=== PATIENT | female | born 1930 | race Caucasian/White ===

== ENCOUNTER 2018-05-27 15:15 | Emergency (ER) | payer MEDICARE ==
[~2018-05-27] VITALS: Ht 157.5 cm; Wt 67.1 kg
[2018-05-27 16:35] LABS: BASOPHILS # (AUTO) 0.1 (0.0-0.1); BASOPHILS % 0.6 % (0.0-1.0); EOSINOPHILS # (AUTO) 0.2 (0.0-0.4); HEMATOCRIT 40.3 % (34.2-44.1); HEMOGLOBIN 13.4 g/dL (12.0-16.0); LYMPHOCYTES # (AUTO) 2.2 (1.0-3.2); LYMPHOCYTES % 26.8 % (18.0-39.1); MEAN CORPUSCULAR HEMOGLOBIN 29.3 pg (28-32); MEAN CORPUSCULAR HGB CONC 33.3 g/dL (31-35); MONOCYTES # (AUTO) 0.7 (0.2-0.8); MONOCYTES % 8.4 % (4.4-11.3); NEUTROPHILS # (AUTO) 5.1 (2.1-6.9); PLATELET COUNT 292 x10e3/uL (140-360); RED BLOOD COUNT 4.58 x10e6/uL (3.6-5.1); RED CELL DISTRIBUTION WIDTH 13.3 % (11.7-14.4)
[2018-05-27] MEDS ORDERED: HYDRALAZINE HCL 20 MG/ML VIAL IV STA (16:41)
[2018-05-27] MEDS ORDERED: ASPIRIN 81 MG CHEW TAB PO ONE (16:45)
[2018-05-27 16:49] LABS: ALBUMIN 3.7 g/dL (3.5-5.0); ALBUMIN/GLOBULIN RATIO 0.9 (0.8-2.0); ANION GAP 15.4 mmol/L (8-16); CREATININE, SERUM 1.2 mg/dL (0.57-1.11); POTASSIUM 4.4 mmol/L (3.5-5.1)
--- NOTE | 2018-05-27 17:22 | Diagnostic Imaging Report ---
Examination: Single AP view of the chest. COMPARISON: None. INDICATION: Shortness of breath DISCUSSION: Lines/tubes: None. Lungs: Mild bilateral perihilar, peribronchial thickening may reflect a viral infection or reactive airway disease. There is no evidence of pneumonia or pulmonary edema. Pleura: There is no pleural effusion or pneumothorax. Heart and mediastinum: Cardiomediastinal silhouette is unremarkable. Pulmonary vasculature is normal. Bones and soft tissues: No acute bony abnormalities. Degenerative changes in the thoracic spine. IMPRESSION: 1. Mild bilateral perihilar, peribronchial thickening may reflect a viral infection or reactive airway disease. Signed by: Dr. Donn Soriano M.D. on 05/27/2018 5:19 PM
[2018-05-27 17:53] LABS: CREATINE KINASE 52 IU/L (29-168)
[2018-05-27] MEDS ORDERED: PRAVASTATIN SOD20 MG (18:54)
[2018-05-27] MEDS ORDERED: ASPIRIN81 MG (18:54)
[2018-05-27] MEDS ORDERED: LEVOTHYROXINE88 MCG PO (18:54)
[2018-05-27] MEDS ORDERED: HYDROCHLOROTHIA25 MG (18:54)
[2018-05-27 19:14] VITALS: BP 161/57
== END 2018-05-27 19:15 | disposition home or self-care (01) ==
LOC: ER 15:15
DX: R06.09 Other forms of dyspnea (principal); J44.9 Chronic obstructive pulmonary disease, unspecified; R60.0 Localized edema
CPT/HCPCS: 36415; 71045; 80053; 82550; 82553; 83880; 84484; 85025; 85379; 93971; 99284; J0360; 93005

== ENCOUNTER 2018-10-16 08:05 | Inpatient (IN) | payer MEDICARE ==
[~2018-10-16] VITALS: Ht 157.5 cm; Wt 72.1 kg
[~2018-10-16 08:05] MED LIST: ASPIRIN81 MG; HYDROCHLOROTHIA25 MG PO; LEVOTHYROXINE88 MCG PO; PRAVASTATIN SOD20 MG PO
--- OUTSIDE RECORDS SUMMARY | 2018-10-16 08:07 | XMS REPORT ---
Author Author [facility] Address Unknown Phone Unavailable Care Team Providers Care Salvage Clerk Name Role Phone Lizbeth GARVEY Unavailable Unavailable Problems This patient has no known problems. Allergies, Adverse Reactions, Alerts This patient has no known allergies or adverse reactions. Medications This patient has no known medications. Results Test Description Test Time Test Comments Text Results Atomic Results Result Comments CHEST SINGLE (PORTABLE) 2018-05-27 17:18:00 [place] [address] Patient Name: ANNELISE GANNON MR #: [id number] : 1930 Age/Sex: 87/F Req #: [id number] [facility] Physician: Ordered by: PEYTON GARVEY MD Report #: [id number] Location: ER Room/Bed: Procedure: [id number] DX/CHEST SINGLE (PORTABLE) Exam Date: 05/27/18 Exam Time: 1654 REPORT STATUS: Signed Examination: Single AP view of the chest. COMPARISON: None. INDICATION: Shortness of breath DISCUSSION: Lines/tubes: None. Lungs: Mild bilateral perihilar, peribronchial thickening may reflect a viral infection or reactive airway disease. There is no evidence of pneumonia or pulmonary edema. Pleura: There is no pleural effusion or pneumothorax. Heart and mediastinum: Cardiomediastinal silhouette is unremarkable. Pulmonary vasculature is normal. Bones and soft tissues: No acute bony abnormalities. Degenerative changes in the thoracic spine. IMPRESSION: 1. Mild bilateral perihilar, peribronchial thickening may reflect a viral infection or reactive airway disease. Signed by: Dr. Donn Jiménez M.D. on 05/27/2018 5:19 PM Dictated By: KALEY JIMÉNEZ MD, MD 18 Transcribed By: ESTHER on 05/27/181718 COPY TO: PEYTON GARVEY MD
--- NOTE | 2018-10-16 08:20 | NUR ---
Dr. Way at bedside with pt.
[2018-10-16 09:04] LABS: BASOPHILS # (AUTO) 0.1 (0.0-0.1); BASOPHILS % 0.4 % (0.0-1.0); EOSINOPHILS # (AUTO) 0.2 (0.0-0.4); EOSINOPHILS % 1.2 % (0.0-6.0); HEMOGLOBIN 11.7 g/dL (12.0-16.0); LYMPHOCYTES # (AUTO) 1.5 (1.0-3.2); LYMPHOCYTES % 10.1 % (18.0-39.1); MEAN CORPUSCULAR HGB CONC 32.5 g/dL (31-35); MEAN CORPUSCULAR VOLUME 89.3 fL (81-99); MONOCYTES # (AUTO) 1.1 (0.2-0.8); MONOCYTES % 7.1 % (4.4-11.3); NEUTROPHILS # (AUTO) 12.1 (2.1-6.9); NEUTROPHILS % 80.4 % (38.7-80.0); PLATELET COUNT 242 x10e3/uL (140-360); RED BLOOD COUNT 4.03 x10e6/uL (3.6-5.1); RED CELL DISTRIBUTION WIDTH 14.3 % (11.7-14.4)
[2018-10-16 09:24] LABS: ALBUMIN/GLOBULIN RATIO 0.7 (0.8-2.0); ANION GAP 18.7 mmol/L (8-16); CALCIUM 9.5 mg/dL (8.4-10.2); CREATININE, SERUM 1.32 mg/dL (0.57-1.11); POTASSIUM 3.7 mmol/L (3.5-5.1)
--- NOTE | 2018-10-16 09:28 | NUR ---
MANA FROM LAB CALLED TO REPORT CRITICAL LACTIC ACID LEVEL 23.3. INFORMED DR. TONG WELL HIREN, RN/JOVANNI RN PRIMARY NURSES FOR PT.
[2018-10-16] MEDS ORDERED: SODIUM CHLORIDE 0.9% 1000ML 1,000 ML IV SCH (09:30)
[2018-10-16] MEDS ORDERED: CEFTRIAXONE SOD 1 GM VIAL IV SCH (09:30)
[2018-10-16 09:34] LABS: B-TYPE NATRIURETIC PEPTIDE2 182.4 pg/mL (0-100); CREATINE KINASE MB 2.9 ng/mL (0-5.0)
--- NOTE | 2018-10-16 09:36 | Diagnostic Imaging Report ---
Examination: Single AP view of the chest. COMPARISON: Chest radiograph 05/27/18. INDICATION: Shortness of breath DISCUSSION: Lines/tubes: None. Lungs: Perihilar interstitial opacities. Patchy opacities of the lung bases. No evidence of lobar consolidation. Pleura: There is no pleural effusion or pneumothorax. Heart and mediastinum: Cardiomediastinal silhouette is unremarkable. Pulmonary vasculature is normal. Bones and soft tissues: No acute bony abnormalities. Degenerative changes in the thoracic spine. IMPRESSION: Perihilar/interstitial and patchy bibasilar opacities could represent atypical pneumonia in the appropriate clinical context. Possible mild pulmonary interstitial edema. Signed by: Dr. Monty Gomes MD on 10/16/2018 9:32 AM
[2018-10-16] MEDS: ALBUTEROL SULF 0.083% NEB SOLN 3 ML NEB NEB SCH ×5 (10:15→23:10)
--- NOTE | 2018-10-16 10:45 | NUR ---
Pt assisted to the restroom without incident.
[2018-10-16] MEDS: CEFTRIAXONE SOD 1 GM/NS 50 ML 50 ML IV SCH (11:20)
--- NOTE | 2018-10-16 11:33 | NUR ---
RT notified of need for nebulize treatment.
[2018-10-16] MEDS: IPRATROPIUM BROMIDE 0.02% 2.5 ML NEB NEB SCH ×4 (12:00→23:10)
[2018-10-16] MEDS: AZITHROMYCIN 500MG/NS 250 ML 250 ML IV SCH (12:54)
--- NOTE | 2018-10-16 14:30 | NUR ---
Pt resting in bed with eyes closed, appearing to be in no acute distress at this time.
[2018-10-16] MEDS: SODIUM CHLORIDE 0.9% 1000ML 1,000 ML IV SCH ×2 (14:50→23:32)
--- NOTE | 2018-10-16 17:13 | NUR ---
Tried to call report to [facility] 2, was told per Gabby "Marilia will call you back."
--- NOTE | 2018-10-16 18:15 | NUR ---
pt alert resp even and unlabored at this time no distress noted, pt able to make needs known, pt has family members at bedside, pt bed in lowest position, bed rails up x2, pt oriented to call light. will cont to monitor.
[2018-10-16 18:20] VITALS: BP 146/85
--- NOTE | 2018-10-16 19:35 | NUR ---
report given to oncoming nurse, for continued care.
[2018-10-16 20:00] VITALS: BP 145/65
--- NOTE | 2018-10-16 20:37 | History and Physical ---
PRIMARY CARE PHYSICIAN: Rehan Moore MD CHIEF COMPLAINT: Shortness of breath and cough. HISTORY OF PRESENT ILLNESS: This is an 87-year-old woman with a history of hypothyroidism and COPD, who quit cigarette about 20 years ago, now developing cough productive of phlegm for the past week with shortness of breath. She also had subjective fever. She also had chills and sweats, here for evaluation. No nausea or vomiting. No diarrhea. PAST MEDICAL HISTORY: COPD, hypothyroidism, fibrocystic breast disease status post bilateral mastectomy prophylactically. PAST SURGICAL HISTORY: Thyroidectomy and bilateral mastectomy. ALLERGIES: PER ELECTRONIC MEDICAL RECORD. FAMILY AND SOCIAL HISTORY: Patient is . No alcohol or illicits. She quit cigarettes 20 years ago. MEDICATIONS: Per electronic medical record. REVIEW OF SYSTEMS: Denies any vision changes. Denies any headache, back pain, or neck pain. Denies any confusion or leg pain. Denies any diarrhea, nausea or vomiting. Denies any other symptoms. PHYSICAL EXAMINATION VITAL SIGNS: Have been reviewed. GENERAL: A tired-appearing woman, resting in bed. HEENT: Anicteric. Pupils reactive to light. No oral lesions. CARDIOVASCULAR: Normal S1, S2. LUNGS: She has reduced breath sounds throughout. No wheezing. ABDOMEN: Soft, nontender, nondistended. EXTREMITIES: No edema or calf tenderness. NEUROLOGIC: Alert and oriented x3. She moves all extremities. SKIN: Dry. PSYCHIATRIC: Normal affect. LABS: Reviewed. MEDICATIONS: Reviewed. ASSESSMENT: An 87-year-old woman with: 1. Acute bronchial pneumonia. 2. Acute kidney injury. 3. Acute exacerbation of chronic obstructive pulmonary disease. 4. Hypothyroidism. 5. Overweight state with a body mass index of 26.5. PLAN 1. Continue azithromycin and ceftriaxone. 2. Continue with antitussive medication. 3. Use loratadine. 4. Use methylprednisolone 20 mg IV q.12. 5. Monitor closely and continue oxygen support. 6. Heparin and Pepcid for prophylaxis. 7. Disposition: Monitored closely and follow up labs in morning. Job#: [id number] KELSEA
[2018-10-16] MEDS: HEPARIN SOD (PORCINE) 5,000 UNIT/ML VIAL SC SCH (22:48)
[2018-10-16] MEDS: METHYLPREDNISOLONE SOD SUCC 40 MG/ML VIAL IV SCH (22:48)
[2018-10-16] MEDS: BENZONATATE 100 MG CAP PO SCH (22:48)
[2018-10-16] MEDS: GUAIFENESIN/DEXTROMETHORPHAN LIQD 5 ML UDC NG SCH (22:49)
[2018-10-17] VITALS (7 sets, daily range): BP systolic 129–156; BP diastolic 60–69
[2018-10-17] MEDS: ALBUTEROL SULF 0.083% NEB SOLN 3 ML NEB NEB SCH ×6 (02:45→23:15)
[2018-10-17 04:52] LABS: BASOPHILS % 0.1 % (0.0-1.0); EOSINOPHILS % 0.1 % (0.0-6.0); HEMATOCRIT 32.2 % (34.2-44.1); HEMOGLOBIN 10.3 g/dL (12.0-16.0); LYMPHOCYTES # (AUTO) 0.7 (1.0-3.2); LYMPHOCYTES % 4.6 % (18.0-39.1); MEAN CORPUSCULAR HEMOGLOBIN 28.7 pg (28-32); MEAN CORPUSCULAR VOLUME 89.7 fL (81-99); MONOCYTES # (AUTO) 0.4 (0.2-0.8); MONOCYTES % 2.6 % (4.4-11.3); NEUTROPHILS # (AUTO) 13.5 (2.1-6.9); NEUTROPHILS % 91.2 % (38.7-80.0); PLATELET COUNT 257 x10e3/uL (140-360); RED BLOOD COUNT 3.59 x10e6/uL (3.6-5.1); RED CELL DISTRIBUTION WIDTH 14.3 % (11.7-14.4)
[2018-10-17] MEDS: GUAIFENESIN/DEXTROMETHORPHAN LIQD 5 ML UDC NG SCH ×3 (05:35→21:48)
--- NOTE | 2018-10-17 06:43 | Diagnostic Imaging Report ---
EXAMINATION: CHEST SINGLE (PORTABLE) INDICATION: PNEUMONIA COMPARISON: 10/16/2018 FINDINGS: AP view TUBES and LINES: None. LUNGS: Lungs are well inflated. Multifocal bilateral airspace opacities, increased at the right lung base. Stable mild interstitial edema. PLEURA: No pleural effusion or pneumothorax. HEART AND MEDIASTINUM: The cardiomediastinal silhouette is unremarkable. BONES AND SOFT TISSUES: No acute osseous lesion. Soft tissues are unremarkable. UPPER ABDOMEN: No free air under the diaphragm. IMPRESSION: Persistent mild interstitial edema and bilateral airspace opacities which may represent edema or infection. Signed by: DR. Csear Lu MD on 10/17/2018 6:40 AM
[2018-10-17 06:51] LABS: ANION GAP 13.1 mmol/L (8-16); CALCIUM 8.4 mg/dL (8.4-10.2); CREATININE, SERUM 0.93 mg/dL (0.57-1.11); POTASSIUM 4.1 mmol/L (3.5-5.1)
--- NOTE | 2018-10-17 06:55 | NUR ---
PT ASLEEP RESP EVEN AND UNLABORED, NO DISTRESS NOTED AT THIS, PT EASILY AROUSED TO NAME , NO C/O SOB AT THIS TIME, CALL LIGHT IN REACH WILL CONT TO MONITOR.
[2018-10-17] MEDS: IPRATROPIUM BROMIDE 0.02% 2.5 ML NEB NEB SCH ×3 (07:00→19:10)
[2018-10-17] MEDS: SODIUM CHLORIDE 0.9% 1000ML 1,000 ML IV SCH ×2 (08:30→18:23)
[2018-10-17] MEDS: METHYLPREDNISOLONE SOD SUCC 40 MG/ML VIAL IV SCH ×2 (08:56→21:48)
[2018-10-17] MEDS: FAMOTIDINE 20 MG TAB PO SCH ×2 (08:56→16:30)
[2018-10-17] MEDS: LORATADINE 10 MG TAB PO SCH (08:56)
[2018-10-17] MEDS: BENZONATATE 100 MG CAP PO SCH ×3 (08:56→21:48)
[2018-10-17] MEDS: CEFTRIAXONE SOD 1 GM/NS 50 ML 50 ML IV SCH (08:57)
[2018-10-17] MEDS: HEPARIN SOD (PORCINE) 5,000 UNIT/ML VIAL SC SCH ×2 (09:00→21:49)
[2018-10-17] MEDS: AZITHROMYCIN 500MG/NS 250 ML 250 ML IV SCH (09:00)
--- NOTE | 2018-10-17 11:40 | NUR ---
ATTEMPTED TO DO DPA PT ASLEEP, CM TO FOLLOW UP AT LATER TIME
--- NOTE | 2018-10-17 19:38 | NUR ---
REPORT GIVEN TO ONCOMING NURSE FOR CONTINUED
[2018-10-18] VITALS (10 sets, daily range): BP systolic 142–182; BP diastolic 65–78
--- NOTE | 2018-10-18 00:04 | NUR ---
Blood pressure recheck: 142/65, pulse:65
[2018-10-18] MEDS: SODIUM CHLORIDE 0.9% 1000ML 1,000 ML IV SCH ×2 (02:04→12:30)
[2018-10-18] MEDS: ALBUTEROL SULF 0.083% NEB SOLN 3 ML NEB NEB SCH ×6 (03:20→22:45)
[2018-10-18] MEDS: IPRATROPIUM BROMIDE 0.02% 2.5 ML NEB NEB SCH ×4 (03:20→19:30)
--- NOTE | 2018-10-18 06:22 | NUR ---
IM- Progress Note- O/N; no events REVIEW OF SYSTEMS: Denies any vision changes. Denies any headache, back pain, or neck pain. Denies any confusion or leg pain. Denies any diarrhea, nausea or vomiting. Denies any other symptoms. PHYSICAL EXAMINATION VITAL SIGNS: Have been reviewed. GENERAL: A tired-appearing woman, resting in bed. HEENT: Anicteric. Pupils reactive to light. No oral lesions. CARDIOVASCULAR: Normal S1, S2. LUNGS: She has reduced breath sounds throughout. No wheezing. ABDOMEN: Soft, nontender, nondistended. EXTREMITIES: No edema or calf tenderness. NEUROLOGIC: Alert and oriented x3. She moves all extremities. SKIN: Dry. PSYCHIATRIC: Normal affect. LABS: Reviewed. MEDICATIONS: Reviewed. ASSESSMENT: An 87-year-old woman with: 1. Acute bronchial pneumonia. 2. Acute kidney injury. 3. Acute exacerbation of chronic obstructive pulmonary disease. 4. Hypothyroidism. 5. Overweight state with a body mass index of 26.5. PLAN 1. Continue azithromycin and ceftriaxone. 2. Continue with antitussive medication. 3. Use loratadine. 4. Use methylprednisolone 20 mg IV q.12. 5. Monitor closely and continue oxygen support. 6. Heparin and Pepcid for prophylaxis. 7. Disposition: Monitored closely and follow up labs in morning. 10/17/18 leukocytosis improving; kristian improving; less cough f/u cx; 10/18/18 check labs; start BB for HTN; reduce fluids; Alden Lancaster MD, PhD.
[2018-10-18] MEDS: GUAIFENESIN/DEXTROMETHORPHAN LIQD 5 ML UDC NG SCH ×3 (06:50→21:58)
[2018-10-18 06:51] LABS: BASOPHILS % 0.2 % (0.0-1.0); HEMATOCRIT 32.2 % (34.2-44.1); HEMOGLOBIN 10.1 g/dL (12.0-16.0); LYMPHOCYTES # (AUTO) 0.8 (1.0-3.2); LYMPHOCYTES % 5.1 % (18.0-39.1); MEAN CORPUSCULAR HEMOGLOBIN 28.3 pg (28-32); MEAN CORPUSCULAR HGB CONC 31.4 g/dL (31-35); MEAN CORPUSCULAR VOLUME 90.2 fL (81-99); MONOCYTES # (AUTO) 0.7 (0.2-0.8); MONOCYTES % 4.3 % (4.4-11.3); NEUTROPHILS # (AUTO) 13.5 (2.1-6.9); NEUTROPHILS % 87.7 % (38.7-80.0); PLATELET COUNT 260 x10e3/uL (140-360); RED BLOOD COUNT 3.57 x10e6/uL (3.6-5.1); RED CELL DISTRIBUTION WIDTH 14.6 % (11.7-14.4)
[2018-10-18 07:17] LABS: CALCIUM 8.3 mg/dL (8.4-10.2); CREATININE, SERUM 0.95 mg/dL (0.57-1.11)
[2018-10-18] MEDS: FAMOTIDINE 20 MG TAB PO SCH ×2 (09:07→16:39)
[2018-10-18] MEDS: METHYLPREDNISOLONE SOD SUCC 40 MG/ML VIAL IV SCH ×2 (09:07→21:30)
[2018-10-18] MEDS: LORATADINE 10 MG TAB PO SCH (09:07)
[2018-10-18] MEDS: METOPROLOL TARTRATE 25 MG TAB PO SCH ×3 (09:07→17:58)
[2018-10-18] MEDS: AZITHROMYCIN 500MG/NS 250 ML 250 ML IV SCH (09:07)
[2018-10-18] MEDS: BENZONATATE 100 MG CAP PO SCH ×3 (09:08→21:30)
[2018-10-18] MEDS: HEPARIN SOD (PORCINE) 5,000 UNIT/ML VIAL SC SCH ×2 (09:10→21:30)
[2018-10-18 10:03] LABS: LYMPHOCYTES % (MANUAL) 9 % (19-48); MONOCYTES % (MANUAL) 3 % (3.4-9.0); NEUTROPHILS % (MANUAL) 88 % (40-74)
[2018-10-18 10:04] LABS: ANISOCYTOSIS SLIGHT; HYPOCHROMASIA SLIGHT; PLATELET ESTIMATE ADEQUATE; PLATELET MORPHOLOGY COMMENT NORMAL; RBC MORPHOLOGY COMMENT NORMAL; SMUDGE CELLS FEW
[2018-10-18] MEDS: CEFTRIAXONE SOD 1 GM/NS 50 ML 50 ML IV SCH (11:02)
--- NOTE | 2018-10-18 11:19 | NUR ---
CALL PLACED OUT TO DR. ANAYA REGARDING PATIENT'S BP. OBTAINED PATIENTS BP MANUALLY RESULT 172/74. AWAITING CALLBACK.
[2018-10-18] MEDS ORDERED: AMLODIPINE BESYL5 MG PO (17:35)
[2018-10-18] MEDS ORDERED: METOPROLOL TARTRATE 25 MG TAB PO SCH (17:38)
--- NOTE | 2018-10-18 19:26 | NUR ---
PATIENT RESTING IN BED- PATIENT IS IN STABLE CONDITION WITH NO S/S OF RESPIRATORY DISTRESS. NO PAIN VOICED. IV FLUIDS INFUSING. CALL LIGHT IS WITHIN REACH, INSTRUCTED TO CALL FOR ASSISTANCE NEEDED. BED ALARM ON. REPORT GIVEN TO ONCOMING NURSE.
--- NOTE | 2018-10-18 19:28 | NUR ---
Patient received lying in bed. AAO x 3. Patient had no complaints of pain or respiratory distress. Fall /safety precautions maintained. Call light within reach.
[2018-10-19] VITALS (8 sets, daily range): BP systolic 136–181; BP diastolic 60–82
[2018-10-19] MEDS: IPRATROPIUM BROMIDE 0.02% 2.5 ML NEB NEB SCH ×4 (01:55→18:50)
[2018-10-19] MEDS: ALBUTEROL SULF 0.083% NEB SOLN 3 ML NEB NEB SCH ×6 (01:55→22:20)
[2018-10-19] MEDS: METOPROLOL TARTRATE 25 MG TAB PO SCH ×2 (05:37→17:08)
[2018-10-19] MEDS: GUAIFENESIN/DEXTROMETHORPHAN LIQD 5 ML UDC NG SCH ×3 (05:38→22:00)
--- NOTE | 2018-10-19 06:05 | NUR ---
Patient's BP elevated (176/70). Dr. Jessica Lancaster notified. New order received.
[2018-10-19] MEDS: NIFEDIPINE CR 30 MG TAB PO PRN ×2 (06:34→09:24)
--- NOTE | 2018-10-19 06:40 | NUR ---
Notified Respiratory Dept. of "Induced Sputum " order.
--- NOTE | 2018-10-19 07:20 | NUR ---
Shift report given to oncoming nurse. Patient resting comfortably.
[2018-10-19] MEDS: SODIUM CHLORIDE 0.9% 1000ML 1,000 ML IV SCH (08:18)
--- NOTE | 2018-10-19 08:19 | NUR ---
IM- Progress Note- O/N; no events REVIEW OF SYSTEMS: Denies any vision changes. Denies any headache, back pain, or neck pain. Denies any confusion or leg pain. Denies any diarrhea, nausea or vomiting. Denies any other symptoms. PHYSICAL EXAMINATION VITAL SIGNS: Have been reviewed. GENERAL: A tired-appearing woman, resting in bed. HEENT: Anicteric. Pupils reactive to light. No oral lesions. CARDIOVASCULAR: Normal S1, S2. LUNGS: She has reduced breath sounds throughout. No wheezing. ABDOMEN: Soft, nontender, nondistended. EXTREMITIES: No edema or calf tenderness. NEUROLOGIC: Alert and oriented x3. She moves all extremities. SKIN: Dry. PSYCHIATRIC: Normal affect. LABS: Reviewed. MEDICATIONS: Reviewed. ASSESSMENT: An 87-year-old woman with: 1. Acute bronchial pneumonia. 2. Acute kidney injury. 3. Acute exacerbation of chronic obstructive pulmonary disease. 4. Hypothyroidism. 5. Overweight state with a body mass index of 26.5. PLAN 1. Continue azithromycin and ceftriaxone. 2. Continue with antitussive medication. 3. Use loratadine. 4. Use methylprednisolone 20 mg IV q.12. 5. Monitor closely and continue oxygen support. 6. Heparin and Pepcid for prophylaxis. 7. Disposition: Monitored closely and follow up labs in morning. 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 Alden Lancaster MD, PhD.
[2018-10-19 08:36] LABS: BASOPHILS % 0.3 % (0.0-1.0); HEMATOCRIT 35.3 % (34.2-44.1); HEMOGLOBIN 11.4 g/dL (12.0-16.0); LYMPHOCYTES # (AUTO) 0.8 (1.0-3.2); LYMPHOCYTES % 5.9 % (18.0-39.1); MEAN CORPUSCULAR HEMOGLOBIN 29.2 pg (28-32); MEAN CORPUSCULAR HGB CONC 32.3 g/dL (31-35); MEAN CORPUSCULAR VOLUME 90.5 fL (81-99); MONOCYTES # (AUTO) 0.6 (0.2-0.8); MONOCYTES % 4.5 % (4.4-11.3); PLATELET COUNT 346 x10e3/uL (140-360)
[2018-10-19 09:05] LABS: ANION GAP 12.5 mmol/L (8-16); CALCIUM 8.7 mg/dL (8.4-10.2); CREATININE, SERUM 0.91 mg/dL (0.57-1.11); POTASSIUM 4.5 mmol/L (3.5-5.1)
[2018-10-19] MEDS: LEVOFLOXACIN 750MG/D5W 150ML 150 ML IV SCH (09:23)
[2018-10-19] MEDS: BENZONATATE 100 MG CAP PO SCH ×3 (09:23→21:25)
[2018-10-19] MEDS: LORATADINE 10 MG TAB PO SCH (09:23)
[2018-10-19] MEDS: METHYLPREDNISOLONE SOD SUCC 40 MG/ML VIAL IV SCH ×2 (09:23→21:25)
[2018-10-19] MEDS: FAMOTIDINE 20 MG TAB PO SCH ×2 (09:23→15:17)
[2018-10-19] MEDS: AZITHROMYCIN 500MG/NS 250 ML 250 ML IV SCH (09:23)
--- NOTE | 2018-10-19 09:24 | NUR ---
dr hendricks was on unit, aware of pt vs hr104, bp 181/82, per md give additional dose of nifedipine. will continue to monitor.
[2018-10-19] MEDS: HEPARIN SOD (PORCINE) 5,000 UNIT/ML VIAL SC SCH ×2 (09:26→21:25)
[2018-10-19 09:30] LABS: ANISOCYTOSIS SLIG; HYPOCHROMASIA SLIGHT; LYMPHOCYTES % (MANUAL) 3 % (19-48); METAMYELOCYTES % (MANUAL) 2 % (0-0); MONOCYTES % (MANUAL) 3 % (3.4-9.0); MYELOCYTES % (MANUAL) 1 % (0-0); NEUTROPHILS % (MANUAL) 91 % (40-74); PLATELET ESTIMATE ADEQUATE; PLATELET MORPHOLOGY COMMENT NORMAL; RBC MORPHOLOGY COMMENT NORMAL
--- NOTE | 2018-10-19 10:07 | NUR ---
Elevator Constructor Helper to bedside to discuss plan of care with patient/family. CM/SW role and care transitions discussed. Anticipated discharge plan discussed along with duration of care. CM/SW discussed patients right to make decisions in care. CM/SW work hours given. Patient lives: with her daughter Admit/Transfer: thru ED, from home POA/Emergency contact: son Pee Moreno at [phone] Current/Previous Home Health: none PCP/Follow-up Care: Minda Romero Current/Previous DME: none, but states she has equipment (walker, cane, wheelchair) at home if needed. pt no longer driving due to macular degeneration Other Services: none; but states her 4 sisters check on her daily Employment Status: retired Areas of Concerns: none Referral Needs: none at this time Education Needs: medical management IMM/CORTES given and signed (if applicable): none at this time Goal for discharge: home; her sisters or son will be able to provide transportation CM/SW left business card at the bedside with contact information. Name and number was also written on the patients whiteboard. Patient verbalized understanding of discussion. CM will follow-up with ongoing discharge and transition of care needs.
--- NOTE | 2018-10-19 10:57 | NUR ---
pt c/o itching near iv site after starting levaquin, slowed rate. pt called back 20-30 min later stating she cant take levaquin because had a reaction years ago that causes pain to ankles. levaquin stopped fci through at pt request. paged to notify.
--- NOTE | 2018-10-19 13:22 | NUR ---
paged re htn, prn dose already administered. awaiting callback
--- NOTE | 2018-10-19 17:37 | NUR ---
pt discarded urine specimen. having intermittent confusion. medical facilities section director needing sample for ua, will pass in report also.
--- NOTE | 2018-10-19 19:24 | NUR ---
Patient received sitting up in bed undergoing breathing treatment. Family at bedside. AAO x 3. IVF infusing at 40 cc /hr. Patient had no complaints of pain. Respirations even and non-labored. Bed locked and in lowest position. Bed rails up x 2. Patient instructed to call for assistance when needed. Call light within reach.
[2018-10-20] VITALS (7 sets, daily range): BP systolic 150–185; BP diastolic 73–107
[2018-10-20] MEDS: NIFEDIPINE CR 30 MG TAB PO PRN (01:35)
[2018-10-20] MEDS: ALBUTEROL SULF 0.083% NEB SOLN 3 ML NEB NEB SCH ×4 (02:20→15:24)
[2018-10-20] MEDS: IPRATROPIUM BROMIDE 0.02% 2.5 ML NEB NEB SCH ×3 (02:20→15:24)
[2018-10-20] MEDS: METOPROLOL TARTRATE 25 MG TAB PO SCH (05:25)
[2018-10-20] MEDS: GUAIFENESIN/DEXTROMETHORPHAN LIQD 5 ML UDC NG SCH ×2 (05:25→14:09)
[2018-10-20] MEDS ORDERED: Guaifenesin/Dextromethorphan NG (08:01)
[2018-10-20] MEDS ORDERED: FAMOTIDINE20 MG PO (08:01)
[2018-10-20] MEDS ORDERED: LORATADINE10 MG PO (08:01)
[2018-10-20] MEDS ORDERED: NIFEDIPINE ER30 M1 PO (08:01)
[2018-10-20] MEDS ORDERED: LOPRESSOR25 MG PO (08:01)
[2018-10-20] MEDS ORDERED: ZITHROMAX500 MG PO (08:01)
[2018-10-20] MEDS ORDERED: PREDNISONE20 MG PO (08:01)
[2018-10-20] MEDS ORDERED: LEVAQUIN500 MG PO (08:01)
[2018-10-20] MEDS ORDERED: TESSALON PERLE100 MG PO (08:01)
--- NOTE | 2018-10-20 08:04 | NUR ---
Discharge Summary Principal dx: ASSESSMENT: An 87-year-old woman with: 1. Acute bronchial pneumonia. 2. Acute kidney injury. 3. Acute exacerbation of chronic obstructive pulmonary disease. 4. Hypothyroidism. 5. Overweight state with a body mass index of 26.5. SEcondary dx: COPD cc and HPI: refer to H&P Hospital course: ASSESSMENT: An 87-year-old woman with: 1. Acute bronchial pneumonia. 2. Acute kidney injury. 3. Acute exacerbation of chronic obstructive pulmonary disease. 4. Hypothyroidism. 5. Overweight state with a body mass index of 26.5. PLAN 1. Continue azithromycin and ceftriaxone. 2. Continue with antitussive medication. 3. Use loratadine. 4. Use methylprednisolone 20 mg IV q.12. 5. Monitor closely and continue oxygen support. 6. Heparin and Pepcid for prophylaxis. 7. Disposition: Monitored closely and follow up labs in morning. 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 condition: stable f/u pcp 1 week d/c home d/c meds; see Daljit Lancaster MD, PhD.
[2018-10-20] MEDS: LEVOFLOXACIN 750MG/D5W 150ML 150 ML IV SCH (08:30)
[2018-10-20] MEDS: NIFEDIPINE CR 30 MG TAB PO SCH ×2 (08:57→08:58)
[2018-10-20] MEDS: HEPARIN SOD (PORCINE) 5,000 UNIT/ML VIAL SC SCH (08:58)
[2018-10-20] MEDS: METHYLPREDNISOLONE SOD SUCC 40 MG/ML VIAL IV SCH (08:58)
[2018-10-20] MEDS: LORATADINE 10 MG TAB PO SCH (08:58)
[2018-10-20] MEDS: BENZONATATE 100 MG CAP PO SCH (08:58)
[2018-10-20] MEDS: AZITHROMYCIN 500MG/NS 250 ML 250 ML IV SCH (08:58)
[2018-10-20] MEDS: FAMOTIDINE 20 MG TAB PO SCH (08:58)
--- NOTE | 2018-10-20 09:51 | NUR ---
Notified Dr. Lancaster patient's 02 saturation while ambulating is 87% and qualifies for home oxygen.
--- NOTE | 2018-10-20 10:56 | NUR ---
RT did home o2 eval. Oxygen sat dropped to 87% on exertion. CM spoke with pt regarding home o2. Signed choice letter for [employer]. Signed copy placed in chart. Copy to pt. Order faxed to [employer] at [phone] / P [phone]. Notified Kvng with [employer] of referral and that pt is discharging today.
--- NOTE | 2018-10-20 12:29 | NUR ---
Received call from Kvng with [employer]. He said they checked pt's benefits and her insurance is currently not active. CM spoke with pt at bedside. She said she thinks she has traditional MCR now but is not sure. Stated she has her new insurance card at home. Pt's daughter at bedside is going to ask a family member to bring up that new insurance card and will contact CM once it is here.
--- NOTE | 2018-10-20 13:44 | NUR ---
Pt's family brought up new insurance card. Copy of card was faxed to [employer]. Kvng was notified.
--- NOTE | 2018-10-20 14:35 | NUR ---
Kvng from [facility] informed that pt's insurance benefit went thru for home oxygen. Portables will be delivered to hospital today. called pt's daughter Marlene Fofana [phone] and informed her. [address] [place] [address]
--- NOTE | 2018-10-20 16:06 | NUR ---
Manual BP 150/80.
--- NOTE | 2018-10-20 16:07 | NUR ---
Oxygen company has delivered tank. Patient can now continue with discharge home.
--- NOTE | 2018-10-20 17:20 | NUR ---
Discharge paperwork and instructions given to the patient and her daughter. They verbalized understanding. IV was removed earlier from left AC with tip intact.
--- NOTE | 2018-10-20 17:34 | NUR ---
Patient left the floor via wheelchair, she is discharged home.
== END 2018-10-20 17:34 | disposition home or self-care (01) | DRG 871 ==
LOC: ER 08:05 → ERHOLD 10:04 → MED/SURG2 18:05
PROVIDERS: ADMIT Internal Medicine; ATTEND Internal Medicine
DX: A41.9 Sepsis, unspecified organism (principal); J18.9 Pneumonia, unspecified organism; J44.1 Chronic obstructive pulmonary disease with (acute) exacerbation; N17.9 Acute kidney failure, unspecified; R09.02 Hypoxemia; I10 Essential (primary) hypertension; E78.5 Hyperlipidemia, unspecified; E03.9 Hypothyroidism, unspecified; E66.3 Overweight; Z68.26 Body mass index [BMI] 26.0-26.9, adult; R41.0 Disorientation, unspecified; F29 Unspecified psychosis not due to a substance or known physiological condition
CPT/HCPCS: 36415; 71045; 71046; 80048; 80053; 82550; 82553; 83605; 83880; 84484; 85025; 87040; 87400; 87449; 93005; 94640; 97139; 99284; J0456; J0696; J1644; J2920; J7030

== ENCOUNTER 2021-01-31 12:49 | Emergency (ER) | payer MEDICARE ==
[~2021-01-31] VITALS: Ht 157.5 cm; Wt 72.1 kg
[~2021-01-31 12:49] MED LIST changes: +AMLODIPINE BESYL5 MG PO; +FAMOTIDINE20 MG PO; +Guaifenesin/Dextromethorphan NG; +LEVAQUIN500 MG PO; +LOPRESSOR25 MG PO; +LORATADINE10 MG PO; +NIFEDIPINE ER30 M1 PO; +PREDNISONE20 MG PO; +TESSALON PERLE100 MG PO; +ZITHROMAX500 MG PO
[2021-01-31] MEDS ORDERED: ASPIRIN 81 MG CHEW TAB PO ONE (13:00)
[2021-01-31 14:05] LABS: BASOPHILS % 0.1 % (0.0-1.0); EOSINOPHILS # (AUTO) 0.3 (0.0-0.4); EOSINOPHILS % 1.8 % (0.0-6.0); HEMATOCRIT 41.5 % (34.2-44.1); HEMOGLOBIN 13.2 g/dL (12.0-16.0); LYMPHOCYTES # (AUTO) 0.7 (1.0-3.2); LYMPHOCYTES % 4.9 % (18.0-39.1); MEAN CORPUSCULAR HEMOGLOBIN 28.3 pg (28-32); MEAN CORPUSCULAR HGB CONC 31.8 g/dL (31-35); MEAN CORPUSCULAR VOLUME 89.1 fL (81-99); MONOCYTES # (AUTO) 0.7 (0.2-0.8); MONOCYTES % 4.5 % (4.4-11.3); NEUTROPHILS # (AUTO) 12.7 (2.1-6.9); NEUTROPHILS % 88.2 % (38.7-80.0); PLATELET COUNT 246 x10e3/uL (140-360); RED BLOOD COUNT 4.66 x10e6/uL (3.6-5.1); RED CELL DISTRIBUTION WIDTH 13.4 % (11.7-14.4)
[2021-01-31 14:20] LABS: ALBUMIN 3.5 g/dL (3.5-5.0); ALBUMIN/GLOBULIN RATIO 0.9 (0.8-2.0); ANION GAP 20.7 mmol/L (8-16); CREATININE, SERUM 1.41 mg/dL (0.57-1.11); POTASSIUM 3.7 mmol/L (3.5-5.1)
[2021-01-31 14:27] LABS: CREATINE KINASE MB 2.2 ng/mL (0-5.0)
[2021-01-31] MEDS ORDERED: SODIUM CHLORIDE 0.9% 50ML 50 ML ONE (15:01)
[2021-01-31] MEDS ORDERED: IOPAMIDOL 370 MG/ML 200 ML INFUS..BTL INJ ONE (15:02)
[2021-01-31] MEDS ORDERED: LASIX20 MG PO (16:49)
[2021-01-31 17:07] VITALS: BP 136/75
== END 2021-01-31 17:09 | disposition home or self-care (01) ==
LOC: ER 13:27
DX: R05 Cough (principal); J84.9 Interstitial pulmonary disease, unspecified; I50.9 Heart failure, unspecified; R94.31 Abnormal electrocardiogram [ECG] [EKG]; I10 Essential (primary) hypertension; E78.5 Hyperlipidemia, unspecified; J44.9 Chronic obstructive pulmonary disease, unspecified; J45.909 Unspecified asthma, uncomplicated; Z20.822 Contact with and (suspected) exposure to COVID-19
CPT/HCPCS: 36415; 71045; 71260; 80053; 82550; 82553; 83880; 84484; 85025; 85379; 93005; 99284; Q9967; U0002

== ENCOUNTER → 2021-05-13 | Outpatient (CLI) | payer MEDICARE ==
[~2021-05-13] MED LIST changes: +ALBUTEROL SULF 0.083% NEB SOLN 3 ML NEB ONE; +LASIX20 MG PO
== END ==
LOC: RESP 08:28
PROVIDERS: ATTEND Internal Medicine Critical Care Medicine
DX: R06.02 Shortness of breath (principal); J30.9 Allergic rhinitis, unspecified; J44.9 Chronic obstructive pulmonary disease, unspecified; K21.9 Gastro-esophageal reflux disease without esophagitis; J84.9 Interstitial pulmonary disease, unspecified
CPT/HCPCS: 94060; 94640; 94727; 94729

== ENCOUNTER 2021-08-31 10:03 | Observation (INO) | payer MEDICARE ==
[~2021-08-31] VITALS: Ht 157.5 cm; Wt 72.1 kg
[~2021-08-31 10:03] MED LIST changes: -ALBUTEROL SULF 0.083% NEB SOLN 3 ML NEB ONE
[2021-08-31] MEDS ORDERED: DEXAMETHASONE SOD PHOS 10 MG/1 ML VIAL IV ONE (10:30)
[2021-08-31] MEDS ORDERED: ALBUTEROL SULFATE HFA 8GM INHALATION AEROSOL INH PRN (10:30)
[2021-08-31 11:41] LABS: BASOPHILS % 0.3 % (0.0-1.0); EOSINOPHILS % 0.3 % (0.0-6.0); HEMATOCRIT 41.2 % (34.2-44.1); HEMOGLOBIN 12.5 g/dL (12.0-16.0); LYMPHOCYTES # (AUTO) 0.9 (1.0-3.2); LYMPHOCYTES % 15.3 % (18.0-39.1); MEAN CORPUSCULAR HEMOGLOBIN 27.2 pg (28-32); MEAN CORPUSCULAR HGB CONC 30.3 g/dL (31-35); MEAN CORPUSCULAR VOLUME 89.6 fL (81-99); MONOCYTES # (AUTO) 0.5 (0.2-0.8); MONOCYTES % 8.9 % (4.4-11.3); NEUTROPHILS # (AUTO) 4.5 (2.1-6.9); PLATELET COUNT 184 x10e3/uL (140-360); RED CELL DISTRIBUTION WIDTH 14.2 % (11.7-14.4)
[2021-08-31 12:02] LABS: CALCIUM 9.4 mg/dL (8.4-10.2); CREATININE, SERUM 1.21 mg/dL (0.57-1.11)
[2021-08-31 12:50] VITALS: BP 125/57
[2021-08-31] MEDS ORDERED: ALBUTEROL/IPRATROPIUM 3 ML NEB NEB ONE (13:00)
[2021-08-31] MEDS ORDERED: ALBUTEROL1.25 MG/3 NEB (20:09)
[2021-08-31 20:25] VITALS: BP 126/73
[2021-08-31] MEDS ORDERED: IPRAT-ALBUT 0.5-3 ML NEB (20:39)
[2021-08-31] MEDS ORDERED: VITAMIN D3 COM1 EACH PO (20:51)
[2021-08-31] MEDS ORDERED: CO Q-10 100 MG1 EACH PO (20:51)
[2021-08-31 21:00] VITALS: BP 126/73
[2021-08-31] MEDS ORDERED: MELATONIN3 MG PO (21:24)
[2021-08-31] MEDS ORDERED: MELATONIN 3 MG TAB PO PRN (21:30)
[2021-08-31] MEDS ORDERED: BENZONATATE 100 MG CAP PO PRN (21:30)
[2021-08-31] MEDS ORDERED: ALBUTEROL/IPRATROPIUM 3 ML NEB ONE (21:59)
[2021-08-31] MEDS: ALBUTEROL/IPRATROPIUM 3 ML NEB NEB PRN (23:04)
[2021-08-31 23:48] VITALS: BP 126/65
[2021-09-01] VITALS (7 sets, daily range): BP systolic 145–165; BP diastolic 53–69
[2021-09-01 05:10] LABS: BASOPHILS % 0.2 % (0.0-1.0); HEMATOCRIT 37.6 % (34.2-44.1); HEMOGLOBIN 11.9 g/dL (12.0-16.0); LYMPHOCYTES # (AUTO) 0.8 (1.0-3.2); LYMPHOCYTES % 17.7 % (18.0-39.1); MEAN CORPUSCULAR HEMOGLOBIN 27.5 pg (28-32); MEAN CORPUSCULAR HGB CONC 31.6 g/dL (31-35); MONOCYTES # (AUTO) 0.6 (0.2-0.8); MONOCYTES % 13.9 % (4.4-11.3); NEUTROPHILS # (AUTO) 3.1 (2.1-6.9); NEUTROPHILS % 67.8 % (38.7-80.0); PLATELET COUNT 180 x10e3/uL (140-360); RED BLOOD COUNT 4.32 x10e6/uL (3.6-5.1); RED CELL DISTRIBUTION WIDTH 13.7 % (11.7-14.4)
[2021-09-01 05:46] LABS: CALCIUM 9.1 mg/dL (8.4-10.2); CREATININE, SERUM 1.35 mg/dL (0.57-1.11)
[2021-09-01] MEDS: ALBUTEROL/IPRATROPIUM 3 ML NEB NEB PRN (07:24)
[2021-09-01] MEDS ORDERED: GUAIFENESIN/DEXTROMETHORPHAN LIQD 5 ML UDC NG PRN (11:30)
[2021-09-01] MEDS ORDERED: ALBUTEROL/IPRATROPIUM 3 ML NEB NEB PRN (11:30)
[2021-09-01] MEDS: LORATADINE 10 MG TAB PO SCH (12:27)
[2021-09-01] MEDS: DOXYCYCLINE 100MG/NS 100ML 100 ML IV SCH ×2 (12:27→23:06)
[2021-09-01] MEDS: METHYLPREDNISOLONE SOD SUCC 40 MG/ML VIAL 1ML IV SCH ×2 (12:27→21:11)
[2021-09-01] MEDS ORDERED: SODIUM CHLORIDE 0.9% 100 ML ONE (12:39)
[2021-09-01] MEDS: BENZONATATE 100 MG CAP PO SCH ×2 (16:45→21:23)
[2021-09-01] MEDS: FAMOTIDINE 20 MG TAB PO SCH (16:45)
[2021-09-01] MEDS: ENOXAPARIN SOD INJ 40 MG/0.4 ML SYR SC SCH (16:46)
[2021-09-01] MEDS ORDERED: PRAVASTATIN 20 MG TAB PO SCH (21:00)
[2021-09-02 00:09] VITALS: BP 175/96
[2021-09-02 05:07] VITALS: BP 184/67
[2021-09-02] MEDS ORDERED: LEVOTHYROXINE SODIUM 88 MCG TAB PO SCH (06:00)
[2021-09-02 08:00] VITALS: BP 173/87
[2021-09-02] MEDS: BENZONATATE 100 MG CAP PO SCH ×2 (08:37→16:03)
[2021-09-02] MEDS: METHYLPREDNISOLONE SOD SUCC 40 MG/ML VIAL 1ML IV SCH (08:37)
[2021-09-02] MEDS: LORATADINE 10 MG TAB PO SCH (08:37)
[2021-09-02] MEDS: FAMOTIDINE 20 MG TAB PO SCH ×2 (08:37→16:03)
[2021-09-02] MEDS ORDERED: AMLODIPINE BESYLATE 5 MG TAB PO SCH (09:00)
[2021-09-02] MEDS ORDERED: TESSALON PERLE100 MG PO (11:25)
[2021-09-02] MEDS ORDERED: FAMOTIDINE20 MG PO (11:25)
[2021-09-02] MEDS ORDERED: PREDNISONE20 MG PO (11:25)
[2021-09-02] MEDS ORDERED: DOXYCYCLINE HY100 MG PO (11:25)
[2021-09-02] MEDS ORDERED: LORATADINE10 MG PO (11:25)
[2021-09-02 11:45] VITALS: BP 176/86
[2021-09-02] MEDS: DOXYCYCLINE 100MG/NS 100ML 100 ML IV SCH (12:02)
[2021-09-02 15:52] VITALS: BP 169/78
[2021-09-02] MEDS: ENOXAPARIN SOD INJ 40 MG/0.4 ML SYR SC SCH (16:04)
[2021-09-02] MEDS ORDERED: DOXYCYCLINE HYCLATE TABLET 100 MG TAB PO SCH (21:00)
== END 2021-09-02 19:20 | disposition home health service (06) ==
LOC: ER 10:13 → ERHOLD 13:26 → MED/SURG3 15:01
PROVIDERS: ADMIT Internal Medicine; ATTEND Internal Medicine
DX: J44.1 Chronic obstructive pulmonary disease with (acute) exacerbation (principal); I12.9 Hypertensive chronic kidney disease with stage 1 through stage 4 chronic kidney disease, or unspecified chronic kidney disease; N18.30 Chronic kidney disease, stage 3 unspecified; N17.9 Acute kidney failure, unspecified; Z20.822 Contact with and (suspected) exposure to COVID-19
CPT/HCPCS: 36415 ×2; 71045; 80048 ×2; 84484; 85025 ×2; 93005; 94640 ×2; 94799 ×2; 97116; 97161; 99284; G0378 ×3; J1100; J1650; J2920 ×2; J7050; U0002

== ENCOUNTER 2021-10-07 09:52 | Inpatient (IN) | payer MEDICARE ==
[~2021-10-07] VITALS: Ht 157.5 cm; Wt 72.1 kg
[~2021-10-07 09:52] MED LIST changes: +ALBUTEROL1.25 MG/3 NEB; +CO Q-10 100 MG1 EACH PO; +DOXYCYCLINE HY100 MG PO; +IPRAT-ALBUT 0.5-3 ML NEB; +MELATONIN3 MG PO; +VITAMIN D3 COM1 EACH PO
[2021-10-07] MEDS ORDERED: SODIUM CHLORIDE 0.9% 1000ML 1,000 ML IV STA ×2 (09:58→11:44)
[2021-10-07] MEDS ORDERED: DEXAMETHASONE SOD PHOS 10 MG/1 ML VIAL IV ONE (10:00)
[2021-10-07] MEDS ORDERED: ALBUTEROL/IPRATROPIUM 3 ML NEB NEB ONE (10:00)
[2021-10-07] MEDS ORDERED: CEFTRIAXONE 1 GM in SODIUM CHLORIDE 0.9% 50ML 50 ML IV ONE (10:00)
[2021-10-07 10:24] LABS: BASOPHILS % 0.2 % (0.0-1.0); HEMATOCRIT 40.2 % (34.2-44.1); HEMOGLOBIN 12.5 g/dL (12.0-16.0); LYMPHOCYTES # (AUTO) 1.8 (1.0-3.2); LYMPHOCYTES % 8.3 % (18.0-39.1); MEAN CORPUSCULAR HEMOGLOBIN 27.4 pg (28-32); MEAN CORPUSCULAR HGB CONC 31.1 g/dL (31-35); MEAN CORPUSCULAR VOLUME 88.2 fL (81-99); MONOCYTES # (AUTO) 1.4 (0.2-0.8); MONOCYTES % 6.4 % (4.4-11.3); NEUTROPHILS # (AUTO) 18.6 (2.1-6.9); NEUTROPHILS % 84.2 % (38.7-80.0); PLATELET COUNT 200 x10e3/uL (140-360); RED BLOOD COUNT 4.56 x10e6/uL (3.6-5.1); RED CELL DISTRIBUTION WIDTH 14.9 % (11.7-14.4)
[2021-10-07 10:43] LABS: ALBUMIN 3.2 g/dL (3.5-5.0); ALBUMIN/GLOBULIN RATIO 0.7 (0.8-2.0); ANION GAP 21.5 mmol/L (8-16); CALCIUM 9.3 mg/dL (8.4-10.2); CREATININE, SERUM 1.48 mg/dL (0.57-1.11); POTASSIUM 3.5 mmol/L (3.5-5.1)
[2021-10-07 10:52] LABS: CREATINE KINASE MB 2.5 ng/mL (0-5.0)
[2021-10-07 10:53] LABS: CLARITY,URINE CLOUDY (CLEAR); COLOR,URINE YELLOW (YELLOW); KETONES,URINE 1+ (NEGATIVE); LEUKOCYTE ESTERASE ,URINE NEGATIVE (NEGATIVE); NITRITE,URINE NEGATIVE (NEGATIVE); PROTEIN,URINE DIPSTICK >=300 (NEGATIVE); URINE UROBILINOGEN 0.2 mg/dL (0.2 - 1)
[2021-10-07 11:08] LABS: BACTERIA,URINE MANY /HPF; EPITHELIAL CELLS,URINE FEW /LPF
[2021-10-07 11:09] LABS: MUCUS,URINE MANY (RARE)
[2021-10-07] MEDS ORDERED: SODIUM CHLORIDE 0.9% 1000ML 1,000 ML IV SCH (12:00)
[2021-10-07 13:27] VITALS: BP 127/58
[2021-10-07 15:44] VITALS: BP 137/92
[2021-10-07] MEDS ORDERED: ONDANSETRON HCL INJ 2MG/ML 2ML 2 MG/ML VIAL IV PRN (16:30)
[2021-10-07] MEDS ORDERED: ACETAMINOPHEN 325 MG TAB PO PRN (16:30)
[2021-10-07] MEDS ORDERED: REMDESIVIR 200MG 200 MG in SODIUM CHLORIDE 0.9% 100 ML IV ONE (17:00)
[2021-10-07] MEDS ORDERED: ALBUTEROL/IPRATROPIUM 3 ML NEB NEB PRN (18:45)
[2021-10-07] MEDS ORDERED: Vancomycin IV 1 GM in SODIUM CHLORIDE 0.9% 250ML 250 ML IV ONE (19:00)
[2021-10-07 20:00] VITALS: BP 149/52
[2021-10-07 20:07] VITALS: BP 149/52
[2021-10-07] MEDS: SIMVASTATIN 20 MG TAB PO SCH (22:31)
[2021-10-08] VITALS (8 sets, daily range): BP systolic 140–156; BP diastolic 53–71
[2021-10-08] MEDS: CEFEPIME 1 GM in SODIUM CHLORIDE 0.9% 50ML 50 ML IV SCH ×3 (04:44→21:00)
[2021-10-08] MEDS: LEVOTHYROXINE SODIUM 88 MCG TAB PO SCH (05:03)
[2021-10-08 05:41] LABS: BASOPHILS % 0.2 % (0.0-1.0); HEMATOCRIT 31.8 % (34.2-44.1); HEMOGLOBIN 10.2 g/dL (12.0-16.0); LYMPHOCYTES # (AUTO) 1.3 (1.0-3.2); LYMPHOCYTES % 5.6 % (18.0-39.1); MEAN CORPUSCULAR HEMOGLOBIN 27.3 pg (28-32); MEAN CORPUSCULAR HGB CONC 32.1 g/dL (31-35); MEAN CORPUSCULAR VOLUME 85.3 fL (81-99); MONOCYTES % 4.6 % (4.4-11.3); NEUTROPHILS % 88.6 % (38.7-80.0); PLATELET COUNT 175 x10e3/uL (140-360); RED BLOOD COUNT 3.73 x10e6/uL (3.6-5.1); RED CELL DISTRIBUTION WIDTH 14.9 % (11.7-14.4)
[2021-10-08 06:04] LABS: POTASSIUM 3.3 mmol/L (3.5-5.1)
[2021-10-08 06:33] LABS: ANION GAP 16.3 mmol/L (8-16); CALCIUM 8.1 mg/dL (8.4-10.2); CREATININE, SERUM 1.01 mg/dL (0.57-1.11)
[2021-10-08] MEDS ORDERED: SODIUM CHLORIDE 0.9% 250ML 250 ML ONE (07:55)
[2021-10-08] MEDS: DEXAMETHASONE SOD PHOS INJ 4 MG/ML SDV IV SCH (08:10)
[2021-10-08] MEDS: ASPIRIN 81 MG CHEW TAB PO SCH (08:11)
[2021-10-08] MEDS: AMLODIPINE BESYLATE 5 MG TAB PO SCH (08:11)
[2021-10-08] MEDS ORDERED: DEXAMETHASONE SOD PHOS 10 MG/1 ML VIAL IV SCH (09:00)
[2021-10-08] MEDS ORDERED: CEFTRIAXONE 1 GM in SODIUM CHLORIDE 0.9% 50ML 50 ML IV SCH (09:00)
[2021-10-08] MEDS: FAMOTIDINE 20 MG TAB PO SCH ×2 (09:00→18:00)
[2021-10-08] MEDS ORDERED: Vancomycin IV 1 GM in SODIUM CHLORIDE 0.9% 250ML 250 ML IV ONE (10:00)
[2021-10-08] MEDS ORDERED: DEXTROSE 50% SYRINGE 50 ML IV PRN (14:00)
[2021-10-08] MEDS ORDERED: LIDOCAINE 4% PATCH TP PRN (14:00)
[2021-10-08] MEDS ORDERED: POTASSIUM CHLORIDE 20 MEQ TAB CR PO PRN (14:00)
[2021-10-08] MEDS ORDERED: DOCUSATE SODIUM 100 MG CAP PO PRN (14:00)
[2021-10-08] MEDS ORDERED: DIPHENHYDRAMINE HCL 25 MG CAP PO PRN (14:00)
[2021-10-08] MEDS ORDERED: ONDANSETRON HCL INJ 2MG/ML 2ML 2 MG/ML VIAL IV PRN (14:00)
[2021-10-08] MEDS ORDERED: CHLORASEPTIC SPRAY 177 ML BTL MM PRN (14:00)
[2021-10-08] MEDS ORDERED: HYDRALAZINE HCL 20 MG/ML VIAL IV PRN (14:00)
[2021-10-08] MEDS ORDERED: SIMETHICONE 80 MG CHEW PO PRN (14:00)
[2021-10-08] MEDS: REMDESIVIR 100MG 100 MG in SODIUM CHLORIDE 0.9% 100 ML IV SCH (14:14)
[2021-10-08] MEDS ORDERED: ALBUTEROL SULFATE HFA 8GM INHALATION AEROSOL INH PRN (14:45)
[2021-10-08] MEDS: ENOXAPARIN 30 MG/0.3 ML SYR SC SCH (18:00)
[2021-10-08] MEDS: SIMVASTATIN 20 MG TAB PO SCH (21:12)
[2021-10-09] VITALS (9 sets, daily range): BP systolic 109–153; BP diastolic 60–83
[2021-10-09] MEDS: MELATONIN 5 MG TABLET PO PRN ×2 (00:30→20:37)
[2021-10-09 04:58] LABS: BASOPHILS # (AUTO) 0.1 (0.0-0.1); BASOPHILS % 0.2 % (0.0-1.0); HEMATOCRIT 33.5 % (34.2-44.1); HEMOGLOBIN 10.8 g/dL (12.0-16.0); LYMPHOCYTES % 4.5 % (18.0-39.1); MEAN CORPUSCULAR HEMOGLOBIN 27.8 pg (28-32); MEAN CORPUSCULAR HGB CONC 32.2 g/dL (31-35); MEAN CORPUSCULAR VOLUME 86.1 fL (81-99); MONOCYTES # (AUTO) 1.1 (0.2-0.8); MONOCYTES % 4.7 % (4.4-11.3); NEUTROPHILS # (AUTO) 20.1 (2.1-6.9); NEUTROPHILS % 89.7 % (38.7-80.0); PLATELET COUNT 189 x10e3/uL (140-360); RED BLOOD COUNT 3.89 x10e6/uL (3.6-5.1); RED CELL DISTRIBUTION WIDTH 15.2 % (11.7-14.4)
[2021-10-09 05:24] LABS: ANION GAP 13.8 mmol/L (8-16); CREATININE, SERUM 0.99 mg/dL (0.57-1.11); MAGNESIUM 1.7 MG/DL (1.3-2.1); PHOSPHORUS 2.1 MG/DL (2.3-4.7)
[2021-10-09 05:32] LABS: CALCIUM 6.6 mg/dL (8.4-10.2); POTASSIUM 2.8 mmol/L (3.5-5.1)
[2021-10-09] MEDS ORDERED: CALCIUM GLUCONATE 10% INJ 9.3 MEQ in SODIUM CHLORIDE 0.9% 100 ML 100 ML IV ONE ×2 (05:45→15:30)
[2021-10-09] MEDS: LEVOTHYROXINE SODIUM 88 MCG TAB PO SCH (06:00)
[2021-10-09] MEDS: POTASSIUM CHLORIDE 20MEQ/100ML 100 ML IV SCH ×3 (07:30→12:57)
[2021-10-09] MEDS: FAMOTIDINE 20 MG TAB PO SCH ×2 (07:30→16:56)
[2021-10-09] MEDS: PANTOPRAZOLE SOD 40 MG TABEC PO SCH (07:30)
[2021-10-09] MEDS: DEXAMETHASONE SOD PHOS INJ 4 MG/ML SDV IV SCH (08:39)
[2021-10-09] MEDS: ASPIRIN 81 MG CHEW TAB PO SCH (08:39)
[2021-10-09] MEDS: AMLODIPINE BESYLATE 5 MG TAB PO SCH (08:40)
[2021-10-09] MEDS: CEFEPIME 1 GM in SODIUM CHLORIDE 0.9% 50ML 50 ML IV SCH ×2 (08:50→20:36)
[2021-10-09] MEDS: SODIUM CHLORIDE 0.9% 1000ML 1,000 ML IV SCH (12:57)
[2021-10-09] MEDS: ENOXAPARIN 30 MG/0.3 ML SYR SC SCH (16:56)
[2021-10-09] MEDS: REMDESIVIR 100MG 100 MG in SODIUM CHLORIDE 0.9% 100 ML IV SCH (16:56)
[2021-10-09] MEDS: SIMVASTATIN 20 MG TAB PO SCH (20:36)
[2021-10-09] MEDS: BENZONATATE 100 MG CAP PO PRN (20:37)
[2021-10-10] VITALS (10 sets, daily range): BP systolic 90–172; BP diastolic 50–84
[2021-10-10] MEDS: SODIUM CHLORIDE 0.9% 1000ML 1,000 ML IV SCH (01:20)
[2021-10-10] MEDS: LEVOTHYROXINE SODIUM 88 MCG TAB PO SCH (06:42)
[2021-10-10 06:47] LABS: BASOPHILS % 0.2 % (0.0-1.0); HEMATOCRIT 33.7 % (34.2-44.1); HEMOGLOBIN 10.5 g/dL (12.0-16.0); LYMPHOCYTES % 6.6 % (18.0-39.1); MEAN CORPUSCULAR HEMOGLOBIN 27.1 pg (28-32); MEAN CORPUSCULAR HGB CONC 31.2 g/dL (31-35); MEAN CORPUSCULAR VOLUME 86.9 fL (81-99); MONOCYTES # (AUTO) 0.9 (0.2-0.8); MONOCYTES % 5.5 % (4.4-11.3); NEUTROPHILS # (AUTO) 13.7 (2.1-6.9); NEUTROPHILS % 86.8 % (38.7-80.0); PLATELET COUNT 201 x10e3/uL (140-360); RED BLOOD COUNT 3.88 x10e6/uL (3.6-5.1); RED CELL DISTRIBUTION WIDTH 15.5 % (11.7-14.4)
[2021-10-10 07:03] LABS: ANION GAP 14.5 mmol/L (8-16); CREATININE, SERUM 1.27 mg/dL (0.57-1.11); POTASSIUM 5.5 mmol/L (3.5-5.1)
[2021-10-10] MEDS: PANTOPRAZOLE SOD 40 MG TABEC PO SCH (09:20)
[2021-10-10] MEDS: AMLODIPINE BESYLATE 5 MG TAB PO SCH (09:20)
[2021-10-10] MEDS: FAMOTIDINE 20 MG TAB PO SCH ×2 (09:20→17:18)
[2021-10-10] MEDS: DEXAMETHASONE SOD PHOS INJ 4 MG/ML SDV IV SCH (09:20)
[2021-10-10] MEDS: ASPIRIN 81 MG CHEW TAB PO SCH (09:20)
[2021-10-10] MEDS: CEFEPIME 1 GM in SODIUM CHLORIDE 0.9% 50ML 50 ML IV SCH ×2 (09:20→20:14)
[2021-10-10 10:30] LABS: ALBUMIN 2.6 g/dL (3.5-5.0); ALBUMIN/GLOBULIN RATIO 0.7 (0.8-2.0); ANION GAP 16.4 mmol/L (8-16); CALCIUM 8.8 mg/dL (8.4-10.2); CREATININE, SERUM 1.16 mg/dL (0.57-1.11); POTASSIUM 5.4 mmol/L (3.5-5.1)
[2021-10-10] MEDS ORDERED: SOD POLYSTYRENE SULFONATE SUSP 15 GM/60 ML BTL PO NR (11:45)
[2021-10-10] MEDS ORDERED: FUROSEMIDE INJ 10 MG/ML 2 ML VIAL IV NR ×2 (11:45→12:30)
[2021-10-10] MEDS ORDERED: DEXAMETHASONE 4 MG TAB PO NR (12:45)
[2021-10-10] MEDS: ENOXAPARIN 30 MG/0.3 ML SYR SC SCH ×2 (13:32→20:14)
[2021-10-10] MEDS: REMDESIVIR 100MG 100 MG in SODIUM CHLORIDE 0.9% 100 ML IV SCH (13:32)
[2021-10-10] MEDS: ALBUTEROL SULFATE HFA 8GM INHALATION AEROSOL INH SCH ×3 (13:53→18:30)
[2021-10-10 17:34] LABS: ANION GAP 19.4 mmol/L (8-16); CALCIUM 8.9 mg/dL (8.4-10.2); CREATININE, SERUM 1.26 mg/dL (0.57-1.11); POTASSIUM 4.4 mmol/L (3.5-5.1)
[2021-10-10] MEDS ORDERED: FUROSEMIDE INJ 10 MG/ML 4 ML VIAL IV ONE (19:30)
[2021-10-10] MEDS: SIMVASTATIN 20 MG TAB PO SCH (20:14)
[2021-10-10] MEDS: BENZONATATE 100 MG CAP PO PRN (20:15)
[2021-10-10] MEDS: MELATONIN 5 MG TABLET PO PRN (20:15)
[2021-10-11] MEDS: ALBUTEROL SULFATE HFA 8GM INHALATION AEROSOL INH SCH ×4 (00:30→19:10)
[2021-10-11 05:12] VITALS: BP 116/62
[2021-10-11] MEDS: LEVOTHYROXINE SODIUM 88 MCG TAB PO SCH (05:40)
[2021-10-11 06:58] LABS: BASOPHILS % 0.2 % (0.0-1.0); EOSINOPHILS % 0.6 % (0.0-6.0); HEMATOCRIT 38.8 % (34.2-44.1); HEMOGLOBIN 12.7 g/dL (12.0-16.0); LYMPHOCYTES # (AUTO) 1.3 (1.0-3.2); LYMPHOCYTES % 26.7 % (18.0-39.1); MEAN CORPUSCULAR HEMOGLOBIN 27.1 pg (28-32); MEAN CORPUSCULAR HGB CONC 32.7 g/dL (31-35); MEAN CORPUSCULAR VOLUME 82.7 fL (81-99); MONOCYTES # (AUTO) 0.8 (0.2-0.8); MONOCYTES % 16.6 % (4.4-11.3); NEUTROPHILS # (AUTO) 2.8 (2.1-6.9); NEUTROPHILS % 55.3 % (38.7-80.0); PLATELET COUNT 259 x10e3/uL (140-360); RED BLOOD COUNT 4.69 x10e6/uL (3.6-5.1); RED CELL DISTRIBUTION WIDTH 12.5 % (11.7-14.4)
[2021-10-11 07:14] LABS: ANION GAP 16.4 mmol/L (8-16); CALCIUM 8.2 mg/dL (8.4-10.2); CREATININE, SERUM 0.59 mg/dL (0.57-1.11); POTASSIUM 3.4 mmol/L (3.5-5.1)
[2021-10-11] MEDS: FAMOTIDINE 20 MG TAB PO SCH ×2 (07:30→17:00)
[2021-10-11] MEDS: PANTOPRAZOLE SOD 40 MG TABEC PO SCH (07:30)
[2021-10-11 07:36] VITALS: BP 148/73
[2021-10-11] MEDS: CEFEPIME 1 GM in SODIUM CHLORIDE 0.9% 50ML 50 ML IV SCH ×2 (09:18→22:41)
[2021-10-11] MEDS: AMLODIPINE BESYLATE 5 MG TAB PO SCH (09:18)
[2021-10-11] MEDS: ASPIRIN 81 MG CHEW TAB PO SCH (09:18)
[2021-10-11] MEDS: DEXAMETHASONE SOD PHOS INJ 4 MG/ML SDV IV SCH (09:18)
[2021-10-11] MEDS: ENOXAPARIN 30 MG/0.3 ML SYR SC SCH ×2 (09:18→22:05)
[2021-10-11] MEDS ORDERED: POTASSIUM CHLORIDE 20 MEQ TAB CR PO NR (11:00)
[2021-10-11 12:11] VITALS: BP 116/69
[2021-10-11] MEDS: REMDESIVIR 100MG 100 MG in SODIUM CHLORIDE 0.9% 100 ML IV SCH (13:20)
[2021-10-11 16:23] VITALS: BP 154/67
[2021-10-11 20:05] VITALS: BP 123/85
[2021-10-11 21:00] VITALS: BP 123/85
[2021-10-11] MEDS: SIMVASTATIN 20 MG TAB PO SCH (22:05)
[2021-10-12] MEDS: ALBUTEROL SULFATE HFA 8GM INHALATION AEROSOL INH SCH ×4 (00:10→20:00)
[2021-10-12 00:19] VITALS: BP 146/63
[2021-10-12 04:51] VITALS: BP 114/85
[2021-10-12] MEDS: LEVOTHYROXINE SODIUM 88 MCG TAB PO SCH (06:24)
[2021-10-12 08:04] LABS: CALCIUM 7.9 mg/dL (8.4-10.2); CREATININE, SERUM 1.08 mg/dL (0.57-1.11)
[2021-10-12 08:16] VITALS: BP 129/63
[2021-10-12] MEDS: FAMOTIDINE 20 MG TAB PO SCH ×2 (09:50→16:53)
[2021-10-12] MEDS: PANTOPRAZOLE SOD 40 MG TABEC PO SCH (09:50)
[2021-10-12] MEDS: ASPIRIN 81 MG CHEW TAB PO SCH (09:50)
[2021-10-12] MEDS: AMLODIPINE BESYLATE 5 MG TAB PO SCH (09:50)
[2021-10-12] MEDS: ENOXAPARIN 30 MG/0.3 ML SYR SC SCH ×2 (09:50→20:49)
[2021-10-12] MEDS: DEXAMETHASONE SOD PHOS INJ 4 MG/ML SDV IV SCH (11:00)
[2021-10-12] MEDS: CEFEPIME 1 GM in SODIUM CHLORIDE 0.9% 50ML 50 ML IV SCH ×2 (11:00→20:48)
[2021-10-12 11:56] VITALS: BP 156/54
[2021-10-12 12:00] VITALS: BP 156/54
[2021-10-12] MEDS ORDERED: POTASSIUM CHLORIDE 20 MEQ TAB CR PO ONE (14:00)
[2021-10-12] MEDS: SIMVASTATIN 20 MG TAB PO SCH (20:48)
[2021-10-13] MEDS: ALBUTEROL SULFATE HFA 8GM INHALATION AEROSOL INH SCH ×4 (01:05→19:10)
[2021-10-13 04:00] VITALS: BP 128/94
[2021-10-13] MEDS ORDERED: SODIUM CHLORIDE 0.9% 250ML 250 ML ONE (04:02)
[2021-10-13] MEDS: LEVOTHYROXINE SODIUM 88 MCG TAB PO SCH (05:32)
[2021-10-13 06:20] LABS: ANION GAP 12.6 mmol/L (8-16); CALCIUM 8.6 mg/dL (8.4-10.2); CREATININE, SERUM 1.16 mg/dL (0.57-1.11); POTASSIUM 3.6 mmol/L (3.5-5.1)
[2021-10-13 07:36] VITALS: BP 128/94
[2021-10-13] MEDS: ASPIRIN 81 MG CHEW TAB PO SCH (08:19)
[2021-10-13] MEDS: ENOXAPARIN 30 MG/0.3 ML SYR SC SCH ×2 (08:19→22:04)
[2021-10-13] MEDS: DEXAMETHASONE SOD PHOS INJ 4 MG/ML SDV IV SCH (08:19)
[2021-10-13] MEDS: FAMOTIDINE 20 MG TAB PO SCH ×2 (08:19→16:43)
[2021-10-13] MEDS: PANTOPRAZOLE SOD 40 MG TABEC PO SCH (08:19)
[2021-10-13] MEDS: CEFEPIME 1 GM in SODIUM CHLORIDE 0.9% 50ML 50 ML IV SCH ×2 (08:19→22:04)
[2021-10-13] MEDS: AMLODIPINE BESYLATE 5 MG TAB PO SCH (08:19)
[2021-10-13 12:05] VITALS: BP 152/65
[2021-10-13] MEDS ORDERED: DEXTROSE 50% SYRINGE 50 ML IV PRN (17:15)
[2021-10-13] MEDS: INSULIN LISPRO 100 UNIT/1 ML 3ML VIAL SQ SCH ×2 (17:40→21:00)
[2021-10-13 19:58] VITALS: BP 166/61
[2021-10-13 20:00] VITALS: BP 166/61
[2021-10-13] MEDS: SIMVASTATIN 20 MG TAB PO SCH (22:04)
[2021-10-13 23:54] VITALS: BP 127/63
[2021-10-14] MEDS: ALBUTEROL SULFATE HFA 8GM INHALATION AEROSOL INH SCH ×2 (00:47→06:16)
[2021-10-14 05:28] VITALS: BP 162/70
[2021-10-14] MEDS: LEVOTHYROXINE SODIUM 88 MCG TAB PO SCH (06:00)
[2021-10-14] MEDS: INSULIN LISPRO 100 UNIT/1 ML 3ML VIAL SQ SCH ×2 (07:30→11:30)
[2021-10-14 07:42] VITALS: BP 128/94
[2021-10-14 08:37] VITALS: BP 150/97
[2021-10-14] MEDS: PANTOPRAZOLE SOD 40 MG TABEC PO SCH (09:11)
[2021-10-14] MEDS: ASPIRIN 81 MG CHEW TAB PO SCH (09:11)
[2021-10-14] MEDS: FAMOTIDINE 20 MG TAB PO SCH (09:11)
[2021-10-14] MEDS: CEFEPIME 1 GM in SODIUM CHLORIDE 0.9% 50ML 50 ML IV SCH (09:11)
[2021-10-14] MEDS: DEXAMETHASONE SOD PHOS INJ 4 MG/ML SDV IV SCH (09:11)
[2021-10-14] MEDS: BENZONATATE 100 MG CAP PO PRN (09:12)
[2021-10-14] MEDS: AMLODIPINE BESYLATE 5 MG TAB PO SCH (09:12)
[2021-10-14] MEDS: ENOXAPARIN 30 MG/0.3 ML SYR SC SCH (09:12)
[2021-10-14 11:45] VITALS: BP 154/85
[2021-10-14] MEDS ORDERED: ONDANSETRON HCL 4 MG ORAL DISINTEGRATING TAB PO PRN (12:30)
== END 2021-10-14 12:17 | disposition home or self-care (01) | DRG 177 ==
LOC: ER 09:59 → ERHOLD 11:59 → MED/SURG2 13:11
PROVIDERS: ADMIT Internal Medicine; ATTEND Internal Medicine
PROC: 8E0ZXY6 Isolation (ICD-10-PCS; 2021-10-07)
PROC: XW033E5 Introduction of Remdesivir Anti-infective into Peripheral Vein, Percutaneous Approach, New Technology Group 5 (ICD-10-PCS; 2021-10-07)
PROC: 05HY33Z Insertion of Infusion Device into Upper Vein, Percutaneous Approach (ICD-10-PCS; principal; 2021-10-08)
PROC: 05HY33Z Insertion of Infusion Device into Upper Vein, Percutaneous Approach (ICD-10-PCS; 2021-10-08)
DX: U07.1 COVID-19 (principal); J12.82 Pneumonia due to coronavirus disease 2019; G93.41 Metabolic encephalopathy; J15.9 Unspecified bacterial pneumonia; J96.01 Acute respiratory failure with hypoxia; N39.0 Urinary tract infection, site not specified; J84.9 Interstitial pulmonary disease, unspecified; I12.9 Hypertensive chronic kidney disease with stage 1 through stage 4 chronic kidney disease, or unspecified chronic kidney disease; N18.30 Chronic kidney disease, stage 3 unspecified; E03.9 Hypothyroidism, unspecified; Z88.8 Allergy status to other drugs, medicaments and biological substances; Z88.1 Allergy status to other antibiotic agents; Z91.030 Bee allergy status; Z87.891 Personal history of nicotine dependence; F03.90 Unspecified dementia, unspecified severity, without behavioral disturbance, psychotic disturbance, mood disturbance, and anxiety; Z85.3 Personal history of malignant neoplasm of breast; E87.5 Hyperkalemia; E87.6 Hypokalemia; Z90.13 Acquired absence of bilateral breasts and nipples; J44.9 Chronic obstructive pulmonary disease, unspecified; Z99.81 Dependence on supplemental oxygen
CPT/HCPCS: 36415; 51700; 70450; 71045; 80048; 80053; 81001; 82550; 82553; 82948; 83605; 83735; 84100; 84484; 85025; 87040; 87086; 93005; 93306; 94640; 94664; 94799; 97139; 99251; 99285; J0360; J0610; J0692; J0696; J1100; J1650; J1940; J3370; J3480; J7030; J7050; U0002